=== PATIENT | female | born 1980 | race Caucasian/White ===

== ENCOUNTER 2024-06-12 14:25 | Outpatient (AMB) | payer OTHER, SELFPAY ==
[2024-06-12 14:49] VITALS: BP 124/84; PULSE 104; RESP 19; TEMP 36; O2SAT 97; BMI 22.0
--- NOTE | 2024-06-12 14:49 | PD.ORTHCLVIS ---
Vital signs 06/12/24 14:49 Height 1.65 m Height Method Stated Weight 60.044 kg Weight Measurement Method Standing Scale BMI 22.0 BP 124/84 Blood Pressure Source Automatic Cuff Blood Pressure Location Right Upper Arm Position Sitting Respiration 19 Pulse 104 H Pulse Source Monitor Temp 96.8 F Temp Source Temporal Artery Scan Pulse Oximetry (%) 97 Oxygen Delivery Method Room Air Med/Allergies Allergies & Medications Allergies No Known Allergies Allergy (Verified 06/12/24 14:50) Medication Reconciliation naproxen 500 mg tablet 500 mg PO bid #60 tabs 06/12/24 [Rx] Subjective Visit Visit for: follow up visit and knee Immunization / Flu Flu Vaccine in the Last 12 Months: No Flu Vaccine Exclusion Criteria: No Exclusion Criteria History of Present Illness Chief complaint: 3 MONTH FOLLOW UP Patient is a pleasant 43-year-old female with over a year of bilateral hip pain. The pain is on the side. It is on the lateral aspect of her hip. She reports the left side is worse than the right and she cannot sleep on her side because of the pain. She has tried Tylenol only. Since we last saw her, the pain has improved significantly. Personal History Occupation: INSURANCE WORKER Hobbies: NONE Red flag PMH: none Pain Pain level (0-10): 2 Pain duration: COMES AND GOES Pain location: other (specify) (HIP) Pain quality: sharp, dull and aching Pain timing: night and increases with activity Associated signs & symptoms: none Ambulatory data Ambulatory device: none Treatments Improvement with previous injections: No Improvement with PT: No Improvement with NSAIDS: n/a Review of Systems Review of Systems: All systems negative unless otherwise noted in HPI. Exam Exam Patient is in no acute distress and is cooperative with the examination today. Breathing is nonlabored. In no respiratory distress. Patient has no paraspinal tenderness. Spinal deformity [cannot] be appreciated. The gait of the patient is [nonantalgic] Bilateral extremities were evaluated and demonstrates sensation intact to light touch. Palpable pedal pulses are present. No significant edema is present. Bilateral knees were examined and the patient has full strength and range of motion.. The right hip was examined. Patient was able to flex to 90 degrees, adduct to 30 degrees, abduct to 40 degrees, internally rotate to 20 degrees, and externally rotate to 20 degrees. Patient has a negative logroll. Stinchfield is negative. The patient is nontender diffusely to touch. The left hip was examined. Patient was able to flex to [90] degrees, adduct to [30] degrees, abduct to [40] degrees, internally rotate to [20] degrees, and externally rotate to [20] degrees. Patient has negative logroll and is tender to palpation over the greater troches laterally Assessment and Plan Problem List (1) Greater trochanteric bursitis of both hips: Status: Acute Plan: Patient is a pleasant 43-year-old female with bilateral hip trochanteric bursitis worse on the left. We discussed nonoperative options. The patient has improved with her prior cortisone injections. She is doing well. We recommended anti-inflammatories and we sent her prescription For naproxen again. We also discussed IT band stretching and strengthening Office Procedures GNS Level of Care Nursing/Assessment Patient Status: Established Patient Nursing Assessment/Reassesment: Medication Reconciliation, Update PMH in EMR and Vital Signs Coordination of Care: Complex Care and Chronic Disease 1-5, Education Complex Pt/Fam, Consent,records obtained, informed consent, Results/Orders obtained and Staff clarify orders Established Patient Charge Established Patient Point Assignment: 95 Established Patient Point Charge: EP Level 3 (80-115) Past Medical History Past Medical History Have you ever been diagnosed with any of the following: Respiratory Problems Smoking: No Smoking Exposure: No
== END 2024-06-12 15:02 | disposition home or self-care (01) ==
LOC: HODSRG 14:25
PROVIDERS: PCP Nurse Practitioner Family; Referring Provider Nurse Practitioner Family; Supervising Provider Orthopaedic Surgery Adult Reconstructive Orthopaedic Surgery; Visit Provider Orthopaedic Surgery Adult Reconstructive Orthopaedic Surgery
DX: M70.62 Trochanteric bursitis, left hip (principal); M70.61 Trochanteric bursitis, right hip
CPT/HCPCS: 99213; G0463